=== PATIENT | male | born 2000 | race Caucasian/White ===

== ENCOUNTER 2018-08-07 20:46 | Emergency (ER) | payer BC, OTHER ==
[2018-08-07 21:07] VITALS: BP 155/87
[2018-08-07] MEDS ORDERED: Albuterol/Ipratropium 3.0-0.5 MG/3 ML Neb Soln NEB ONE ×2 (21:26→22:27)
--- NOTE | 2018-08-07 22:23 | EDM.PDOC ---
ED HPI GENERAL MEDICAL PROBLEM - General Chief Complaint: Respiratory Problem Stated Complaint: RESPITORY ISSUES SOB Time Seen by Provider: 08/07/18 21:17 Source of Information: Reports: Patient, Family History Limitations: Reports: No Limitations - History of Present Illness INITIAL COMMENTS - FREE TEXT/NARRATIVE: The patient presents with a cough, fever and wheezing. This has been going on for about a week. He has no history of asthma. He also has some heaviness in his chest. He does smoke cigarettes. Onset: Gradual Duration: Week(s): Location: Reports: Chest Quality: Reports: Other (heaviness) Severity: Moderate Improves with: Reports: None Worsens with: Reports: None Associated Symptoms: Reports: Chest Pain, Cough, Fever/Chills, Shortness of Breath. Denies: Headaches, Nausea/Vomiting Chest Pain Score (Numeric/FACES): 5 - Related Data Allergies Allergy/AdvReac Type Severity Reaction Status Date / Time No Known Allergies Allergy Verified 07/23/13 16:51 Home Meds: Home Meds . [No Known Home Meds] 08/07/18 [History] Past Medical History - Past Surgical History HEENT Surgical History: Reports: Adenoidectomy, Oral Surgery, Tonsillectomy Social & Family History - Tobacco Use Smoking Status *Q: Current Every Day Smoker Years of Tobacco use: 2 Packs/Tins Daily: 1 - Caffeine Use Caffeine Use: Reports: Soda - Recreational Drug Use Recreational Drug Use: No ED ROS GENERAL - Review of Systems Review Of Systems: See Below Constitutional: Reports: Fever HEENT: Reports: No Symptoms Respiratory: Reports: Shortness of Breath, Wheezing, Cough Cardiovascular: Reports: No Symptoms Endocrine: Reports: No Symptoms GI/Abdominal: Reports: No Symptoms : Reports: No Symptoms Musculoskeletal: Reports: No Symptoms ED EXAM, GENERAL - Physical Exam Exam: See Below Exam Limited By: No Limitations General Appearance: Alert, No Apparent Distress Ears: Normal External Exam Nose: Normal Inspection Head: Atraumatic, Normocephalic Neck: Normal Inspection Respiratory/Chest: No Respiratory Distress, Wheezing (moderate) Cardiovascular: Regular Rate, Rhythm, No Edema, No Murmur GI/Abdominal: Soft, Non-Tender, No Organomegaly, No Mass Back Exam: Normal Inspection Extremities: Normal Inspection Course - Vital Signs Last Recorded V/S: Last Vital Signs Temp 98.1 F 08/07/18 21:05 Pulse 70 08/07/18 21:05 Resp 28 H 08/07/18 21:05 BP 155/87 H 08/07/18 21:05 Pulse Ox 93 L 08/07/18 22:47 - Orders/Labs/Meds Orders: Active Orders 24 hr Category Date Time Status Cardiac Monitoring [RC] . DIRECTED Care 08/07/18 22:28 Active EKG Documentation Completion [RC] ASDIRECTED Care 08/07/18 22:28 Active RT Aerosol Therapy [RC] ASDIRECTED Care 08/07/18 21:27 Active RT Aerosol Therapy [RC] ASDIRECTED Care 08/07/18 22:28 Active RT Post Treatment Assessment [RC] Click to Edit Care 08/07/18 23:57 Active RT Pre-Treatment Assessment [RC] Click to Edit Care 08/07/18 23:57 Active CXR [Chest 2V] [CR] Stat Exams 08/07/18 21:27 Taken EKG 12 Lead [EK] Stat Ther 08/07/18 22:28 Ordered Labs: Laboratory Tests 08/07/18 08/07/18 Range/Units 22:40 22:40 WBC 13.51 H (4.23-9.07) K/mm3 RBC 5.15 (4.63-6.08) M/mm3 Hgb 17.0 (13.7-17.5) gm/L Hct 46.6 (40.1-51.0) % MCV 89.5 (79.0-92.2) fl MCH 33.0 H (25.7-32.2) pg MCHC 36.5 H (32.2-35.5) g/dl RDW Std Deviation 37.7 (35.1-43.9) fL Plt Count 247 (163-337) K/mm3 MPV 10.1 (9.4-12.3) fl Neut % (Auto) 58.4 (34.0-67.9) % Lymph % (Auto) 23.5 (21.8-53.1) % [place] % (Auto) 9.2 (5.3-12.2) % Eos % (Auto) 8.7 H (0.8-7.0) Baso % (Auto) 0.2 (0.1-1.2) % Neut # (Auto) 7.90 H (1.78-5.38) K/mm3 Lymph # (Auto) 3.17 (1.32-3.57) K/mm3 [place] # (Auto) 1.24 H (0.30-0.82) K/mm3 Eos # (Auto) 1.17 H (0.04-0.54) K/mm3 Baso # (Auto) 0.03 (0.01-0.08) K/mm3 Manual Slide Review Normal smear Sodium 141 (136-145) mEq/L Potassium 3.4 L (3.5-5.1) mEq/L Chloride 105 (98-107) mEq/L Carbon Dioxide 25 (21-32) mEq/L Anion Gap 14.4 (5-15) BUN 17 (7-18) mg/dL Creatinine 1.2 (0.7-1.3) mg/dL Est Cr Clr Drug Dosing 107.78 mL/min Estimated GFR (MDRD) > 60 (>60) mL/min BUN/Creatinine Ratio 14.2 (14-18) Glucose 119 H (74-106) mg/dL Calcium 8.8 (8.5-10.1) mg/dL Total Bilirubin 1.3 H (0.2-1.0) mg/dL AST 14 L (15-37) U/L ALT 20 (16-63) U/L Alkaline Phosphatase 44 L (46-116) U/L Troponin I < 0.017 (0.00-0.056) ng/mL Total Protein 7.5 (6.4-8.2) g/dl Albumin 4.1 (3.4-5.0) g/dl Globulin 3.4 gm/dL Albumin/Globulin Ratio 1.2 (1-2) Meds: Medications Discontinued Medications Generic Name Dose Route Start Last Admin Trade Name Freq PRN Reason Stop Dose Admin Albuterol 1 gm 08/07/18 23:56 Proventil Hfa INH 08/07/18 23:57 ONETIME ONE Albuterol/Ipratropium 3 ml 08/07/18 21:26 08/07/18 21:36 Duoneb 3.0-0.5 Mg/3 Ml NEB 08/07/18 21:27 3 ml ONETIME ONE Administration Albuterol/Ipratropium 3 ml 08/07/18 22:27 08/07/18 22:46 Duoneb 3.0-0.5 Mg/3 Ml NEB 08/07/18 22:28 3 ml ONETIME ONE Administration - Re-Assessments/Exams Free Text/Narrative Re-Assessment/Exam: 08/07/18 22:23 I ordered a duoneb, CXR and influenza. The influenza was negative. I do not see an infiltrate on CXR. 08/08/18 00:09 He tells be that he passed out a couple times the past few days. He has done this before as a teenager. He had that worked up and nothing was found. I then ordered some labs and an EKG. His EKG shows a NSR with a prolonged QT interval. His WBC was elevated at 13.51. His K was a little low at 3.4. His total bili was slightly elevated at 1.3. His troponin is negative. I gave him another breathing treatment and he sounds better. I feel he has bronchitis early pneumonia. I will get him on some doxycycline, albuterol and phenergan with codeine. I will have him follow up with his doctor for the QT interval and possibly cardiology. Departure - Departure Time of Disposition: 00:15 Disposition: Home, Self-Care 01 Condition: Good Clinical Impression: Bronchitis, Prolonged QT interval Syncope Qualifiers: Syncope type: unspecified Qualified Code(s): R55 - Syncope and collapse - Discharge Information *PRESCRIPTION DRUG MONITORING PROGRAM REVIEWED*: Not Applicable *COPY OF PRESCRIPTION DRUG MONITORING REPORT IN PATIENT MARIA DE JESUS: Not Applicable Referrals: Vernon Weaver MD [Primary Care Provider] - 1 Week Forms: ED Department Discharge Additional Instructions: Take the doxycycline 2 times per day. Take the phenergan with codeine as needed for cough. Use the inhaler 2 puffs every 6 hours as needed for any shortness of breath. Follow up with Dr Humphreys in 1 week. Please return if you are worse. - My Orders Last 24 Hours: My Active Orders 08/07/18 21:27 RT Aerosol Therapy [RC] ASDIRECTED CXR [Chest 2V] [CR] Stat 08/07/18 22:28 Cardiac Monitoring [RC] . DIRECTED EKG Documentation Completion [RC] ASDIRECTED RT Aerosol Therapy [RC] ASDIRECTED EKG 12 Lead [EK] Stat 08/07/18 23:57 RT Post Treatment Assessment [RC] Click to Edit RT Pre-Treatment Assessment [RC] Click to Edit - Assessment/Plan Last 24 Hours: My Active Orders 08/07/18 21:27 RT Aerosol Therapy [RC] ASDIRECTED CXR [Chest 2V] [CR] Stat 08/07/18 22:28 Cardiac Monitoring [RC] . DIRECTED EKG Documentation Completion [RC] ASDIRECTED RT Aerosol Therapy [RC] ASDIRECTED EKG 12 Lead [EK] Stat 08/07/18 23:57 RT Post Treatment Assessment [RC] Click to Edit RT Pre-Treatment Assessment [RC] Click to Edit
[2018-08-07] MEDS ORDERED: Albuterol 6.7 GM Inhaler INH ONE (23:56)
--- NOTE | 2018-08-08 06:33 | CR ---
Chest: Two views of the chest were obtained. Comparison: No prior chest x-ray. Heart size and mediastinum are normal. Lungs are clear. Bony structures are unremarkable. Impression: 1. Nothing acute is appreciated on two-view chest x-ray. Diagnostic code #1
== END 2018-08-08 00:23 | disposition home or self-care (01) ==
LOC: JD.ED 20:46
DX: I45.81 Long QT syndrome (principal); J40 Bronchitis, not specified as acute or chronic; F17.210 Nicotine dependence, cigarettes, uncomplicated; Z98.890 Other specified postprocedural states
CPT/HCPCS: 36415; 71046; 80053; 84484; 85025; 87804; 93005; 94640; 99285; A9270; 93010; 99284; J7620-GY